=== PATIENT | male | born 1980 | race Caucasian/White ===

== ENCOUNTER 2020-09-20 05:02 | Emergency (ER) | payer SELFPAY ==
[2020-09-20] MEDS ORDERED: SODIUM CHLORIDE 0.9% 500 ML INFUS.BAG IV ONE (05:09)
[2020-09-20] MEDS ORDERED: ONDANSETRON 4 MG/2 ML VIAL IVPUSH ONE (05:14)
[2020-09-20 05:16] LABS: VENOUS BASE EXCESS -3.7 mmol/L (-2-2); VENOUS O2 SATURATION 90.2 % (70-80); VENOUS PCO2 48.9 mmHg (38-52); VENOUS PH 7.296 (7.310-7.410)
[2020-09-20] MEDS ORDERED: ONDANSETRON 4 MG/2 ML VIAL ONE (05:16)
[2020-09-20 05:17] LABS: HEMATOCRIT 49.6 % (35.4-49); HEMOGLOBIN 16.4 GM/dL (11.7-16.9); LYMPH % 32.4 % (8-40); MCH 29.1 pg (25.7-33.7); MCHC 33.1 g/dl (32.0-35.9); MEAN CELL VOLUME 87.9 fl (80-96); MONO % 6.7 % (3.8-10.2); NEUT % 58.9 % (42.8-82.8); PLATELET COUNT 307 10^3/uL (134-434); RBC 5.64 M/mm3 (4.00-5.60); RDW 13.4 % (11.9-15.9); WHITE BLOOD COUNT 9.2 K/mm3 (4.0-10.0)
[2020-09-20 05:21] VITALS: TEMP 98.3; BMI 27.1
[2020-09-20 05:23] LABS: INR 0.94 (0.83-1.09); PROTHROMBIN TIME (PATIENT) 11.6 SEC (9.7-13.0)
[2020-09-20 05:26] LABS: ACTIVATED PTT 31.2 SECONDS (25.2-36.5)
[2020-09-20 05:36] LABS: CHLORIDE 110 mmol/L (98-107); SODIUM 141 mmol/L (136-145)
[2020-09-20 05:38] LABS: CALCIUM 9.2 mg/dL (8.5-10.1)
[2020-09-20 05:39] LABS: ALBUMIN 4.1 g/dl (3.4-5.0); ANION GAP 9 MMOL/L (8-16); CO2 23 mmol/L (21-32); GLUCOSE,RANDOM 114 mg/dL (74-106)
[2020-09-20 05:42] LABS: CREATININE 1.1 mg/dL (0.55-1.3); SGOT/AST 27 U/L (15-37); SGPT/ALT 53 U/L (13-61)
[2020-09-20 05:43] LABS: BILIRUBIN,TOTAL 0.2 mg/dL (0.2-1)
[2020-09-20 05:45] LABS: ALK PHOS 58 U/L (45-117)
[2020-09-20 09:04] VITALS: BP 135/90; PULSE 71
== END 2020-09-20 09:35 | disposition home or self-care (01) ==
LOC: JER 05:02
PROC: 3E033NZ Introduction of Analgesics, Hypnotics, Sedatives into Peripheral Vein, Percutaneous Approach (ICD-10-PCS; principal; 2020-09-20)
DX: F10.920 Alcohol use, unspecified with intoxication, uncomplicated (principal); R11.10 Vomiting, unspecified
CPT/HCPCS: 36415; 80053; 80307; 82010; 82803; 84484; 85025; 85610; 85730; 93005; 93010; 99284-25